=== PATIENT | male | born 1970 | race Caucasian/White ===

== ENCOUNTER 2018-12-29 09:47 | Emergency (ER) | payer BC, SELFPAY ==
[2018-12-29] VITALS (7 sets, daily range): BP systolic 117–131; BP diastolic 69–85; PULSE 74; RESP 15–16; TEMP 36.9; O2SAT 96–98
--- NOTE | 2018-12-29 09:52 | NUR.NOTE ---
pt believes himself to have bronchitis as PT has had it in the past with similar symptoms. pt states tightness and SOB since Sunday as well as productive cough thick brown mucus
--- NOTE | 2018-12-29 10:05 | ED.GENADUL_ITS ---
Discharge Plan Disposition Patient Disposition: HOME Condition: Improving Discharge Details Chief Complaint: SOB Clinical Impression: Bronchitis Primary Care Provider: Aaron Anne ED Provider: Angela Zarate Home Meds and New Rx's Prescriptions: Continued diclofenac sodium 100 mg Tablet Extended Release 24 Hr 100 mg PO DAILY RF: 0 esomeprazole magnesium [Nexium] 40 mg Capsule,Delayed Release(Dr/Ec) 40 mg PO DAILY RF: 0 fluticasone propionate [Flonase Allergy Relief] 50 mcg/actuation [place],Suspension 2 spray INTRANASAL DAILY RF: 0 Discharge Instructions Instructions: Acute Bronchitis (ED) Additional Instructions: Use the albuterol inhaler as needed and directed for any shortness of breath, wheezing or cough. Take the antibiotics and steroids until finished. Follow-up with your primary care doctor this week for reevaluation. Return immediately to the emergency department with any worsening or new concerning symptoms such as persistent fevers, worsening shortness of breath, or chest pain. Discharge Data Discharge Date/Time-TO BE ENTERED AT DEPARTURE: 12/29/18 11:00 Discharge Physician: Angela Zarate Medical Decision Making 48-year-old male with no significant past medical history and a non-smoker who presents with cough with brown sputum, chest congestion and shortness of breath for the past 2 to 3 weeks. Denies any chest pain. Vitals normal on arrival. Afebrile. Patient appears nontoxic. EKG done on arrival due to complaint of shortness of breath initially and is unremarkable. Patient given a DuoNeb on arrival and upon my evaluation admits to improvement in symptoms. He has mild coarse breath sounds and rhonchi on the right side of the chest but no wheezing. No obvious focal area of diminished breath sounds on exam. Presentation appears consistent likely with bronchitis versus pneumonia. Do not see an indication for lab work and denies any complaint of tearing chest pain, pleuritic pain, and does not appear consistent with dissection or PE. PERC n egative. Patient offered chest x-ray to rule out pneumonia but he is declining. Patient states he would like a prescription for antibiotics. He was offered a dose of steroids here but he is declining. We will send home with a prescription for antibiotics and steroid as well as albuterol inhaler. He is instructed to follow-up with his primary care doctor this week for reevaluation and to return here if worse. Medical Records Medical records reviewed: Yes I reviewed the patient's medical records. ECG Data Attestation: I personally reviewed and interpreted this ECG (s) as follows: Interpretation: 83bpm. Sinus. TWI in lead III. No old EKG to compare. QTc 442. QRS 78. No acute ST elevation or depression. HPI General Mode of arrival: ambulatory . Date/Time Provider Initiated Documentation: 12/29/18 10:04 . Limitations to Documentation: no limitations . Information obtained by: patient . HPI Narrative: Patient is a 48-year-old male who presents with cough with brown sputum, chest congestion, and intermittent shortness of breath for the past 2 to 3 weeks. Patient denies any chest pain. He does admit to occasional fevers but states he has not taken his temperature. He states he has been taking Mucinex but no other medications. He states he has not seen a doctor for his symptoms. He denies any recent travel, recent surgery, recent hospital admission, leg pain or swelling. Related Data Home Medications Medication Instructions Recorded Confirmed diclofenac sodium 100 mg PO DAILY 12/29/18 12/29/18 esomeprazole magnesium [Nexium] 40 mg PO DAILY 12/29/18 12/29/18 fluticasone propionate [Flonase 2 spray INTRANASAL DAILY 12/29/18 12/29/18 Allergy Relief] Allergies Allergy/AdvReac Type Severity Reaction Status Date / Time No Known Allergies Allergy Unverified 12/29/18 09:55 General Stated Complaint: SOB KACY: 3 Review of Systems Review of Systems All systems reviewed & are unremarkable except as noted in HPI and below Constitutional Reports as per HPI, Denies chills and Denies fever(s) Eyes Denies blurry vision ENT Denies dizziness, Reports nasal discharge, Denies sore throat and Denies throat swelling Cardiovascular Denies chest pain and Reports dyspnea Respiratory Reports cough and Reports dyspnea Gastrointestinal Denies abdominal pain, Denies diarrhea and Denies vomiting Genitourinary Denies hematuria and Denies dysuria Musculoskeletal Denies back pain and Denies numbness Integumentary/Breasts Denies lesions and Denies rash Neurologic Denies dizziness, Denies focal weakness and Denies numbness Allergic/Immunologic Denies throat swelling [facility] Medical History No significant past medical history (Acute) Surgical History History of ankle surgery (Acute) History of appendectomy (Chronic) History of tonsillectomy (Chronic) Social History Smoking/Tobacco Use Status: Never Alcohol Intake: never Drug use: Never Substance use type: does not use Do you feel safe at home: Yes Do you feel safe in your relationship?: Yes Exam Const General: cooperative, healthy appearing and no acute distress HENMT Head: normal to inspection Face and sinus: normal facial exam Eyes General: appearance normal, both eyes and all related structures EOM: EOM intact bilaterally Neck Neck: normal visual inspection and No submandibular swelling Lymphatic: no lymphadenopathy noted Chest Chest: normal inspection of the chest and no tenderness Resp Effort & Inspection: normal respiratory effort and able to speak in complete sentences Auscultation: rhonchi right upper and right lower and no wheezes Cardio Rate: regular rate Rhythm: regular rhythm GI Inspection: normal to inspection Palpation: soft, not firm, not rigid and nontender Auscultation: normal bowel sounds Skin General skin exam: no rashes or lesions noted Neuro General: alert, awake and oriented x3 Cognition: normal cognition Speech: speech normal Motor: muscle tone normal throughout Sensory Exam: no sensory deficits noted Extrem General: normal to inspection, full ROM and no edema Psych Appearance: grossly normal Mental Status: mental status grossly normal Speech and Movement: speech and movement normal Affect: normal affect Course Vital Signs Temperature 98.4 F 12/29/18 09:53 Pulse 74 12/29/18 09:53 Respiratory Rate 16 12/29/18 09:53 Blood Pressure 131/85 12/29/18 09:53 Pulse Oximetry 97 12/29/18 09:53 Temperature 98.4 F 12/29/18 09:53 Temperature Source Skin 12/29/18 09:53 Pulse 74 12/29/18 09:53 Respiratory Rate 15 12/29/18 09:57 Respiratory Effort 12/29/18 09:57 Respiratory Depth Normal 12/29/18 09:57 Respiratory Pattern Normal 12/29/18 09:57 Blood Pressure 131/85 12/29/18 09:53 Blood Pressure Position Sitting 12/29/18 09:53 Pulse Oximetry 97 12/29/18 09:53 Oxygen Delivery Method Room Air 12/29/18 09:53 Oxygen Flow Rate 0 12/29/18 09:53 Pain Level 2 12/29/18 09:53
[2018-12-29] MEDS: Albuterol/Ipratropium 3 ML UPD VIAL (10:18)
--- NOTE | 2018-12-29 10:37 | NUR.NOTE ---
pt states that SOB had decreased post duoneb Nursing Note:
[2018-12-29] MEDS: Albuterol HFA 8 GM 60 PUFF INH IH (10:56)
== END 2018-12-29 11:00 | disposition home or self-care (01) ==
PROVIDERS: Emergency Provider Physician Assistant; PCP Family Medicine
DX: J20.9 Acute bronchitis, unspecified (principal)
CPT/HCPCS: 93005; 94640; 99283; 93010; J7620